=== PATIENT | female | born 2000 | race Hispanic/Latino ===

== ENCOUNTER → 2021-05-04 | Outpatient (CLI) | payer OTHER ==
--- NOTE | 2021-05-04 11:23 | REP ---
INDICATION: PREG, ANATOMY COMPARISON: None. TECHNIQUE: Transabdominal obstetrical ultrasound with color Doppler evaluation. FINDINGS: Examination demonstrates a single live intrauterine in breech presentation. motion is identified by technologist. Placenta is noted posterior/fundal and grade 1 without evidence for placenta previa or abruption. Amniotic fluid volume is normal. Cervix measures 2.9 cm in length and appears closed. Selected gestational age: 20 weeks 6 days with DAYSI 09/15/2021. Gestational age by current measurements 21 weeks 1 day with ADYSI 09/13/2021. FHR equals 152 beats per minute. Estimated weight 428 grams (76thpercentile). Anatomical assessment demonstrates normal structures including cranium, choroid plexus, cavum, cerebellum/posterior fossa, facial features, lungs, four-chamber heart/ventricular outflow tracts, diaphragm, stomach, cord insertion/three-vessel cord, kidneys/bladder, and extremities. Limited evaluation of the spine due to positioning. IMPRESSION: 1. Single live intrauterine in breech presentation demonstrating appropriate estimated weight. 2. Limited evaluation of the spine due to positioning. 3. Cervix measures 2.9 cm in length and appears closed. <Electronically signed by Brando Peters > 05/04/21 [id number]
== END ==
LOC: M RAD 10:17
PROVIDERS: ATTEND Registered Nurse
DX: Z34.02 Encounter for supervision of normal first pregnancy, second trimester (principal); Z3A.20 20 weeks gestation of pregnancy

== ENCOUNTER 2021-07-23 20:39 | Outpatient (CLI) | payer OTHER ==
[~2021-07-23] VITALS: Ht 160 cm; Wt 70.8 kg
[2021-07-23] MEDS ORDERED: PRENTAB9 PO (20:54)
[2021-07-23 20:57] VITALS: BP 143/87
[2021-07-23 21:17] VITALS: BP 138/85
[2021-07-23 22:30] LABS: AMORPHOUS SEDIMENT SMALL (NEGATIVE); APPEARANCE, URINE HAZY (CLEAR); BACTERIA, URINE AUTO 1+ (NEGATIVE); BILIRUBIN, URINE AUTO NEGATIVE (NEGATIVE); BLOOD, URINE BLOOD NEGATIVE (NEGATIVE); COLOR, URINE YELLOW (YELLOW); GLUCOSE, URINE (UA) AUTO NEGATIVE (NEGATIVE); KETONE, URINE AUTO NEGATIVE (NEGATIVE); LEUKOCYTE ESTERASE, URINE AUTO NEGATIVE (NEGATIVE); NITRITE, URINE AUTO NEGATIVE (NEGATIVE); PROTEIN, URINE AUTO NEGATIVE (NEGATIVE); RBC, URINE AUTO 0 /HPF (0-3); SPECIFIC GRAVITY URINE AUTO 1.005 (1.002-1.035); SQUAMOUS EPITHELIAL CELL UR AU 10 /HPF (0-6); UROBILINOGEN, URINE AUTO 0.2 mg/dL (0.0-2.0); WBC, URINE AUTO 3 /HPF (0-3)
[2021-07-23 22:44] LABS: CREATININE,RANDOM URINE 46.3 MG/DL; TOTAL PROTEIN,RANDOM URINE 9.8 MG/DL (0.0-12.0)
[2021-07-23] MEDS ORDERED: HOME MED LIST COMPLETE! XX SCH (23:40)
[2021-07-23 23:41] VITALS: BP 133/74
[2021-07-24 00:03] LABS: ALBUMIN 2.7 GM/DL (3.2-5.2); ALT/SGPT 16 U/L (12-78); BILIRUBIN,TOTAL 0.4 MG/DL (0.2-1.0); BLOOD UREA NITROGEN 8 MG/DL (7-18); CALCIUM LEVEL 8.9 MG/DL (8.5-10.1); CARBON DIOXIDE LEVEL 24 MEQ/L (21-32); CHLORIDE LEVEL 110 MEQ/L (98-107); CREATININE FOR GFR 0.56 MG/DL (0.55-1.30); GLOMERULAR FILTRATION RATE > 60.0 (>60); GLUCOSE, FASTING 108 MG/DL (70-100); POTASSIUM SERUM 4.1 MEQ/L (3.5-5.1); SODIUM LEVEL 142 MEQ/L (136-145); TOTAL PROTEIN 6.3 GM/DL (6.4-8.2)
[2021-07-24 00:05] LABS: INR 0.97; PROTHROMBIN TIME 13.3 SECONDS (12.7-14.5)
[2021-07-24 00:16] LABS: HEMOGLOBIN 10.9 g/dl (12.0-15.5); MEAN CORPUSCULAR HEMOGLOBIN 29.8 pg (27.0-33.0); MEAN CORPUSCULAR VOLUME 90.2 fl (80.0-96.0); PLATELET COUNT, AUTOMATED 274 10^3/uL (150-450); RED BLOOD COUNT 3.66 10^6/uL (4.00-5.40); WHITE BLOOD COUNT 5.1 10^3/uL (4.0-10.0)
== END 2021-07-24 01:47 | disposition home or self-care (01) ==
LOC: M LDO 20:39
PROVIDERS: ATTEND Obstetrics & Gynecology
DX: O26.893 Other specified pregnancy related conditions, third trimester (principal); W00.1XXA Fall from stairs and steps due to ice and snow, initial encounter; Y93.9 Activity, unspecified; Y99.9 Unspecified external cause status; Z3A.32 32 weeks gestation of pregnancy
CPT/HCPCS: 36415; 59025; 76815; 80053; 81001; 82570; 84156; 85027; 85384; 85610; 85730; G0378; G0463

== ENCOUNTER 2021-08-29 06:32 | Outpatient (CLI) | payer OTHER ==
[~2021-08-29] VITALS: Ht 160 cm; Wt 73.3 kg
[~2021-08-29 06:32] MED LIST: PRENTAB9 PO
[2021-08-29 07:09] VITALS: BP 124/84
[2021-08-29] MEDS ORDERED: HOME MED LIST COMPLETE! XX SCH (07:10)
[2021-08-29 08:00] VITALS: BP 139/92
[2021-08-29] MEDS ORDERED: ACET-907 PO (16:06)
[2021-08-29] MEDS ORDERED: BENA25CA4 PO (16:06)
== END 2021-08-29 08:13 | disposition home or self-care (01) ==
LOC: M LDO 06:32
PROVIDERS: ATTEND Obstetrics & Gynecology
DX: O47.03 False labor before 37 completed weeks of gestation, third trimester (principal); Z3A.37 37 weeks gestation of pregnancy
CPT/HCPCS: 59025; G0378; G0463

== ENCOUNTER 2021-08-29 15:52 | Inpatient (IN) | payer OTHER ==
[~2021-08-29] VITALS: Ht 160 cm; Wt 73.6 kg
[2021-08-29] VITALS (26 sets, daily range): BP systolic 112–155; BP diastolic 58–100
[2021-08-29] MEDS ORDERED: BENA25CA4 PO (16:06)
[2021-08-29] MEDS ORDERED: ACET-907 PO (16:06)
[2021-08-29] MEDS ORDERED: HOME MED LIST COMPLETE! XX SCH (16:10)
[2021-08-29] MEDS ORDERED: PROMETHAZINE INJ 25 MG/ML VIAL (J2550) IV ONE (16:25)
[2021-08-29] MEDS ORDERED: BUTORPHANOL 2 MG/ML INJ (J0595) IV ONE (16:25)
[2021-08-29 16:50] LABS: HEMATOCRIT 34.7 % (36.0-47.0); HEMOGLOBIN 11.6 g/dl (12.0-15.5); MEAN CORPUSCULAR HEMOGLOBIN 28.7 pg (27.0-33.0); MEAN CORPUSCULAR HGB CONC 33.4 g/dl (32.0-36.5); MEAN CORPUSCULAR VOLUME 85.9 fl (80.0-96.0); PLATELET COUNT, AUTOMATED 233 10^3/uL (150-450); RED BLOOD COUNT 4.04 10^6/uL (4.00-5.40); WHITE BLOOD COUNT 6.1 10^3/uL (4.0-10.0)
[2021-08-29 17:20] LABS: APPEARANCE, URINE HAZY (CLEAR); BACTERIA, URINE AUTO NEGATIVE (NEGATIVE); BILIRUBIN, URINE AUTO NEGATIVE (NEGATIVE); BLOOD, URINE BLOOD 2+ (NEGATIVE); COLOR, URINE YELLOW (YELLOW); GLUCOSE, URINE (UA) AUTO NEGATIVE (NEGATIVE); KETONE, URINE AUTO NEGATIVE (NEGATIVE); LEUKOCYTE ESTERASE, URINE AUTO TRACE (NEGATIVE); NITRITE, URINE AUTO NEGATIVE (NEGATIVE); PROTEIN, URINE AUTO 1+ mg/dL (NEGATIVE); RBC, URINE AUTO 5 /HPF (0-3); SPECIFIC GRAVITY URINE AUTO 1.012 (1.002-1.035); SQUAMOUS EPITHELIAL CELL UR AU 6 /HPF (0-6); UROBILINOGEN, URINE AUTO 0.2 mg/dL (0.0-2.0); WBC, URINE AUTO 6 /HPF (0-3)
[2021-08-29 17:25] LABS: CREATININE,RANDOM URINE 85.9 MG/DL; TOTAL PROTEIN,RANDOM URINE 30.5 MG/DL (0.0-12.0)
[2021-08-29 17:29] LABS: ALT/SGPT 15 U/L (12-78); BILIRUBIN,TOTAL 0.3 MG/DL (0.2-1.0); CREATININE FOR GFR 0.65 MG/DL (0.55-1.30); GLOMERULAR FILTRATION RATE > 60.0 (>60); LDH LACTATE DEHYDROGENASE 198 U/L (84-246); URIC ACID 5.6 MG/DL (2.6-6.0)
[2021-08-29] MEDS ORDERED: LIDOCAINE 1% MDV 20ML VIAL INFIL PRN (20:00)
[2021-08-29] MEDS ORDERED: OXYTOCIN DRIP 30 UNITS in IV 1 EA IV PRN (20:00)
[2021-08-29] MEDS ORDERED: METHYLERGONOVINE MALEATE 0.2 MG/ML VIAL (J2210) IM PRN (20:00)
[2021-08-29] MEDS ORDERED: OXYTOCIN DRIP 30 UNITS in IV 1 EA IV SCH (20:40)
[2021-08-29] MEDS ORDERED: LR 1,000 ML IV SCH (20:40)
[2021-08-29] MEDS ORDERED: FENTANYL 2MCG/ML ROPIVACAINE 0.2% IN 0.9% NACL 100ML IVBAG As Ordered ONE (21:29)
[2021-08-29] MEDS ORDERED: REFRIGERATOR IV KEYS XX PRN (21:30)
[2021-08-29] MEDS ORDERED: ePHEDrine SULFATE 25 MG/5 ML(5MG/ML) SYRINGE IV PRN (21:30)
[2021-08-29] MEDS ORDERED: LACTATED RINGER'S 1000 ML IV PRN (21:30)
[2021-08-29] MEDS: FENTANYL/ROPIVACAINE/NACL BAG 100 ML EPIDURAL SCH (21:30)
[2021-08-29] MEDS ORDERED: diphenhydrAMINE 50MG/ML VIAL (J1200) IV PRN (21:30)
[2021-08-29] MEDS ORDERED: EPIDURAL/PCA KEYS XX PRN (21:30)
[2021-08-29] MEDS ORDERED: EPIDURAL COMMENT XX SCH (21:30)
[2021-08-29] MEDS ORDERED: ONDANSETRON 4MG/2ML VIAL IV PRN (21:30)
[2021-08-29] MEDS ORDERED: NALOXONE INJ 0.4MG/1ML VIAL (J2310 PER 1MG) IV PRN (21:30)
[2021-08-29] MEDS: LR 1,000 ML IV SCH ×2 (22:17→22:58)
[2021-08-30] VITALS (37 sets, daily range): BP systolic 129–173; BP diastolic 63–102
[2021-08-30] MEDS: LR 1,000 ML IV SCH (03:12)
[2021-08-30] MEDS: FENTANYL/ROPIVACAINE/NACL BAG 100 ML EPIDURAL SCH (05:37)
[2021-08-30] MEDS ORDERED: hydrALAZINE 20MG/ML 1ML VIAL (J0360 PER 20MG) IV STA (07:13)
[2021-08-30] MEDS ORDERED: RHOGAM 300 MCG (1500 IU) INJ (J2790) IM SCH (09:55)
[2021-08-30] MEDS ORDERED: DIBUCAINE 1% OINTMENT 30GM TOP PRN (09:55)
[2021-08-30] MEDS ORDERED: METHYLERGONOVINE MALEATE 0.2 MG TAB PO PRN (09:55)
[2021-08-30] MEDS ORDERED: DOCUSATE SODIUM 100MG CAPSULE PO PRN (09:55)
[2021-08-30] MEDS ORDERED: MEASLES,MUMPS,RUBELLA VACCINE INJ (MMR-II) (90707) SC SCH (09:55)
[2021-08-30] MEDS: PRENATAL VITAMINS CHEWABLE TABLET PO SCH (14:32)
[2021-08-30] MEDS: IBUPROFEN 800 MG TAB PO PRN (14:37)
[2021-08-31 06:00] VITALS: BP 131/71
[2021-08-31] MEDS: PRENATAL VITAMINS CHEWABLE TABLET PO SCH (08:50)
[2021-08-31] MEDS: ACETAMINOPHEN TAB 650MG DOSE (2X325MG) PO PRN ×2 (08:52→15:54)
[2021-08-31 18:00] VITALS: BP 138/89
[2021-09-01 06:00] VITALS: BP 131/79
[2021-09-01] MEDS: IBUPROFEN 800 MG TAB PO PRN (06:04)
[2021-09-01] MEDS ORDERED: IBUP80TA PO (06:51)
[2021-09-01] MEDS: PRENATAL VITAMINS CHEWABLE TABLET PO SCH (09:39)
== END 2021-09-01 10:50 | disposition home or self-care (01) | DRG 807 ==
LOC: M LDO 15:52 → M LDI 20:04 → M OBS 08-30 11:22
PROVIDERS: ADMIT Obstetrics & Gynecology; ATTEND Obstetrics & Gynecology
PROC: 10E0XZZ Delivery of Products of Conception, External Approach (ICD-10-PCS; principal; 2021-08-30)
PROC: 0HQ9XZZ Repair Perineum Skin, External Approach (ICD-10-PCS; 2021-08-30)
DX: O14.94 Unspecified pre-eclampsia, complicating childbirth (principal); Z37.0 Single live birth; Z3A.37 37 weeks gestation of pregnancy; O69.2XX0 Labor and delivery complicated by other cord entanglement, with compression, not applicable or unspecified; O70.0 First degree perineal laceration during delivery

== ENCOUNTER 2022-03-22 12:07 | Emergency (ER) | payer OTHER ==
[~2022-03-22] VITALS: Ht 160 cm; Wt 72.6 kg
[~2022-03-22 12:07] MED LIST changes: +ACET-907 PO; +BENA25CA4 PO; +IBUP80TA PO
[2022-03-22] MEDS ORDERED: KETOROLAC 30 MG/ML 1ML VIAL IM ONE (15:20)
[2022-03-22] MEDS ORDERED: ACETAMINOPHEN 500 MG TAB PO ONE (15:20)
[2022-03-22] MEDS ORDERED: LIDOCAINE 5% (LIDODERM) PATCH TD ONE (15:20)
[2022-03-22 15:23] LABS: BASO % 0.5 % (0.0-1.0); EOS # 0.1 10^3/uL (0.0-0.5); EOS % 1.2 % (0.0-3.0); HEMATOCRIT 40.2 % (36.0-47.0); HEMOGLOBIN 13.2 g/dl (12.0-15.5); LYMPH # 1.9 10^3/uL (1.5-5.0); LYMPH % 32.3 % (24.0-44.0); MEAN CORPUSCULAR HEMOGLOBIN 29.5 pg (27.0-33.0); MEAN CORPUSCULAR HGB CONC 32.8 g/dl (32.0-36.5); MEAN CORPUSCULAR VOLUME 89.7 fl (80.0-96.0); MONO # 0.4 10^3/uL (0.0-0.8); MONO % 6.7 % (2.0-8.0); NEUTROPHILS # 3.4 10^3/uL (1.5-8.5); PLATELET COUNT, AUTOMATED 378 10^3/uL (150-450); RED BLOOD COUNT 4.48 10^6/uL (4.00-5.40); WHITE BLOOD COUNT 5.8 10^3/uL (4.0-10.0)
[2022-03-22 15:42] LABS: BLOOD UREA NITROGEN 15 MG/DL (7-18); CALCIUM LEVEL 9.9 MG/DL (8.5-10.1); CARBON DIOXIDE LEVEL 23 MEQ/L (21-32); CHLORIDE LEVEL 109 MEQ/L (98-107); CREATININE FOR GFR 0.89 MG/DL (0.55-1.30); GLOMERULAR FILTRATION RATE > 60.0 (>60); GLUCOSE, FASTING 92 MG/DL (70-100); POTASSIUM SERUM 4.3 MEQ/L (3.5-5.1); SODIUM LEVEL 138 MEQ/L (136-145)
[2022-03-22] MEDS ORDERED: CYCL5TAB PO (16:32)
[2022-03-22] MEDS ORDERED: MEDR4PAK PO (16:32)
[2022-03-22 16:56] VITALS: BP 118/64
[2022-03-23] MEDS ORDERED: **NOTE PATIENT COMMENT** MISC XX ONE (03:19)
== END 2022-03-22 17:04 | disposition home or self-care (01) ==
LOC: M ED 12:07
DX: M54.50 Low back pain, unspecified (principal); Z79.899 Other long term (current) drug therapy
CPT/HCPCS: 80048; 84702; 85025; 96372; 99283; J1885